=== PATIENT | male | born 1975 | race Caucasian/White ===

== ENCOUNTER → 2021-02-13 | Outpatient (CLI) | payer OTHER | END | disposition home or self-care (01) | LOC: LABMN 13:00 | PROVIDERS: ATTEND Internal Medicine | DX: Z02.1 Encounter for pre-employment examination (principal) | CPT/HCPCS: 86706; 86735; 86762; 86765; 86787 ==

== ENCOUNTER 2022-03-05 14:16 | Emergency (ER) | payer OTHER ==
[~2022-03-05] VITALS: Ht 175.3 cm; Wt 77.3 kg
[2022-03-05] MEDS ORDERED: ACET-2247 PO (14:33)
[2022-03-05 14:36] VITALS: BP 104/69
[2022-03-05 15:44] LABS: COVID AG,FIA SOURCE NASAL SWAB
== END 2022-03-05 15:47 | disposition home or self-care (01) ==
LOC: EMS 14:22
DX: U07.1 COVID-19 (principal)
CPT/HCPCS: 99283; 87426; C9803

== ENCOUNTER → 2025-05-23 | Outpatient (CLI) | payer OTHER ==
[~2025-05-23] MED LIST: ACET-2247 PO
[2025-05-23 08:52] LABS: PLATELET COUNT (AUTO) 245 K/uL (150-450); RED BLOOD CELL COUNT(AUTO) 5.58 MIL/uL (4.50-5.90); RED CELL DISTRIBUTION WIDTH 13.7 % (11.5-14.5); WHITE BLOOD COUNT (AUTO) 6.2 K/uL (4.5-11.0)
[2025-05-23 09:49] LABS: ASPARTATE AMINOTRANSFERASE 35 U/L (15-37); CALCIUM, TOTAL 9.1 mg/dL (8.8-10.5); CREATININE 0.74 mg/dL (0.60-1.30); GLOMERULAR FILTR. RATE CALC > 60 mL/min (>60); GLUCOSE,RANDOM 110 mg/dL (70-110); SODIUM SERUM 137 mmol/L (136-145); TOTAL PROTEIN, SERUM 8.8 g/dL (6.4-8.2); UREA NITROGEN, BLOOD 13 mg/dL (7-18)
[2025-05-23 09:53] LABS: VITAMIN B12 LEVEL 1115 pg/mL (211-911)
[2025-05-23 09:58] LABS: CHOL/HDL RATIO 4.3 (4.2-7.3); LDL CHOL (CALC.) 150 mg/dL (0-130)
[2025-05-23 10:22] LABS: FOLATE SERUM > 24.0 ng/mL (5.4-)
[2025-05-27 07:59] LABS: ALBUMIN/CREATININE RATIO 12.0 mg/g creat (0-29); CREATININE, URINE (mALB) 147.0 mg/dL (Not Estab.)
== END | disposition home or self-care (01) ==
LOC: LABMN 08:23
PROVIDERS: ATTEND Internal Medicine Geriatric Medicine
DX: R73.03 Prediabetes (principal)
CPT/HCPCS: 80053; 80061; 82043; 82570; 82607; 82746; 83036; 84153; 84443; 85025

== ENCOUNTER 2025-06-03 19:16 | Emergency (ER) | payer OTHER ==
[~2025-06-03] VITALS: Ht 165.1 cm; Wt 81.8 kg
[2025-06-03 19:41] VITALS: BP 164/99; PULSE 94; RESP 16; TEMP 97.7; O2SAT 98
[2025-06-03] MEDS: ACETAMINOPHEN 500 MG TABLET PO ONE (20:28)
[2025-06-03] MEDS: IBUPROFEN 400 MG TABLET PO ONE (20:28)
[2025-06-03 20:36] LABS: PLATELET COUNT (AUTO) 250 K/uL (150-450); RED BLOOD CELL COUNT(AUTO) 5.02 MIL/uL (4.50-5.90); RED CELL DISTRIBUTION WIDTH 14.3 % (11.5-14.5); WHITE BLOOD COUNT (AUTO) 7.1 K/uL (4.5-11.0)
[2025-06-03 20:41] LABS: CALCIUM, TOTAL 8.5 mg/dL (8.8-10.5); CREATININE 1.25 mg/dL (0.60-1.30); GLOMERULAR FILTR. RATE CALC > 60 mL/min (>60); GLUCOSE,RANDOM 112 mg/dL (70-110); SODIUM SERUM 140 mmol/L (136-145); UREA NITROGEN, BLOOD 17 mg/dL (7-18)
== END 2025-06-03 22:19 | disposition home or self-care (01) ==
LOC: EMS 19:16
DX: T63.301A Toxic effect of unspecified spider venom, accidental (unintentional), initial encounter (principal); X58.XXXA Exposure to other specified factors, initial encounter; Y93.H2 Activity, gardening and landscaping; Y92.89 Other specified places as the place of occurrence of the external cause; Y99.8 Other external cause status
CPT/HCPCS: 80048; 82550; 85025; 99283